=== PATIENT | female | born 1955 | race Caucasian/White ===

== ENCOUNTER 2020-03-19 10:33 | Outpatient (CLI) | payer OTHER, SELFPAY ==
--- NOTE | ~2020-03-19 | XR_ITS ---
EXAMINATION: XR abdomen/kub 1V INDICATION: Bilateral hydronephrosis TECHNIQUE: Supine view of the abdomen is obtained. COMPARISON: None FINDINGS: The bowel gas pattern is normal. There are no dilated loops of bowel. No abnormal calcifica tions are identified. Cholecystectomy clips are noted in the right upper quadrant. IMPRESSION: 1. No radiographic correlate for the patient's symptoms. Reviewed, dictated and finalized at location A.
--- NOTE | ~2020-03-19 | CT_ITS ---
EXAMINATION: CT abdomen pelvis wo/w con DATE: 03/19/2020 11:50 INDICATION: Bilateral hydronephrosis TECHNIQUE: Computed tomography (CT) of the abdomen and pelvis was performed without intravenous contr ast. CT of the abdomen and pelvis was then performed with a total of 130 mL Omnipaque 350 intravenous contrast using a double-bolus technique for simultaneous opacification of the renal parenchyma and r enal collecting system. The dose-length product (DLP) was 975.21 mGy-cm. Automated exposure control a nd iterative reconstruction technique were employed. COMPARISON: None FINDINGS: The lung bases are clear. The heart size is normal. Surgical clips in the right upper quadr ant are likely from prior cholecystectomy. There is a 1.2 cm cyst of the liver dome. The spleen, panc reas, and adrenal glands are normal. No suspicious renal or urothelial lesion is identified. No stone s are identified in the kidneys, ureters, or bladder. There is no hydronephrosis or hydroureter. Ther e is mild transient enlargement of the right ureter which is not seen on the precontrast images, like ly physiologic. No ureteral stone or stricture is seen. There is calcified atherosclerosis of the aor ta and many of the other arteries. No pathologically enlarged abdominal or pelvic lymph nodes are refugio ntified. There is no free intraperitoneal gas or evidence of bowel obstruction. The appendix is mansi l. There is moderate lumbar spondylosis. IMPRESSION: 1. No CT correlate for the patient's symptoms. Reviewed, dictated and finalized at location A.
[2020-03-19 11:26] LABS: Estimated Glomerular Filt Rate > 60
== END 2020-03-19 10:34 | disposition home or self-care (01) ==
PROVIDERS: Visit Provider Nurse Practitioner Adult Health
DX: N13.30 Unspecified hydronephrosis (principal)
CPT/HCPCS: 36415; 74018; 74178; Q9967